=== PATIENT | female | born 1970 | race Caucasian/White ===

== ENCOUNTER 2023-05-24 12:30 | Emergency (ER) | payer OTHER, SELFPAY ==
[2023-05-24 12:37] VITALS: BP 150/100
[2023-05-24 12:51] LABS: % Basophils 0.6 % (0-2); % Eosinophils 1.5 % (0-6); % Immature Granulocytes 0.3 % (0-0.5); % Lymphocytes 22.9 % (20.5-51.1); % Monocytes 9.2 % (1.7-9.3); % Neutrophils 65.5 % (42.2-75.2); Absolute Basophils 0.1 10^3/uL (0-0.2); Absolute Eosinophils 0.1 10^3/uL (0-0.7); Absolute Lymphocytes 1.8 10^3/uL (1.2-3.4); Absolute Monocytes 0.7 10^3/uL (0.1-0.6); Absolute Neutrophils 5.1 10^3/uL (1.4-6.5); Hematocrit 38.2 % (37.0-47.0); Hemoglobin 13.1 g/dL (12.0-16.0); Mean Corp Hgb Conc. 34.3 g/dL (33.0-37.0); Mean Corpuscular Hgb 31.1 pg (27.0-31.0); Mean Corpuscular Volume 90.7 fL (81.0-99.0); Mean Platelet Volume 9.8 fL (7.4-10.4); Nucleated Red Blood Cells % 0 %; Platelet Count 258 10^3/uL (130-400); Red Blood Cell Count 4.21 10^6/uL (4.20-5.40); Red Cell Dist. Width 13.2 % (11.5-14.5); White Blood Cell Count 7.8 10^3/uL (4.8-10.8)
[2023-05-24 13:08] LABS: ALT (SGPT) 27 U/L (0-35); AST (SGOT) 24 U/L (14-36); Albumin 4.2 g/dl (3.5-5.0); Alkaline Phosphatase 56 U/L (38-126); Blood Urea Nitrogen 17 mg/dl (7-17); Calcium 9.1 mg/dl (8.4-10.2); Carbon Dioxide 25 mmol/L (22-30); Chloride 109 mmol/L (98-107); Glucose 101 mg/dl (70-99); Potassium 3.6 mmol/L (3.5-5.1); Sodium 141 mmol/L (135-145); Total Bilirubin 0.4 mg/dl (0.2-1.3); Total Protein 6.8 g/dl (6.3-8.2); eGFR > 60.00
--- NOTE | 2023-05-24 14:44 | ED.GENMED ---
History of Present Illness
General
Chief Complaint: Musculo-Skeletal Complaint
Time Seen by Provider: 05/24/23 14:40
Travel History
Have you had any contact with someone who has COVID-19?: No
Do you have any symptoms of coronavirus? Fever > 100 degrees, chills, cough, shortness of breath, sore throat, loss of taste or smell, muscle aches, or headache?: No
History of Present Illness
History of Present Illness:
52-year-old female presents to the emergency department for evaluation of right-sided neck pain as well as right arm pain ongoing for the past several days. She also reports as though her right arm is swollen and the right leg feels swollen. Right
neck pain is worse with rotation of the head and neck. She does have known cervical spine issues and has a follow-up with pain management tomorrow. She denies any chest pain or shortness of breath, denies any vision changes, headaches, or vertigo.
Past History
Past History
ED Past Medical History: Asthma, Other (chronic left eye vision problem) and Other (Bipolar disorder, occasional hypertension)
ED Past Surgical History: Other (Patient has had abreast reduction, left eye surgery, bariatric surgery, abdominoplasty.)
Social History
Tobacco: Non-smoker
Alcohol: None
Drug: None
Personal:
Living: with family
Employment: Not employed
Family History
Family History: CAD
Review of Systems
Review of Systems
Allergies reviewed?: Yes
All Other Systems: ROS reviewed and negative except as documented in HPI and ROS
Phy Exam
Physical Exam
Physical Exam:
GEN: Well appearing, NAD, WDWN
HEENT: Oral mucosa moist, no scleral icterus, no nasal congestion
Cardiac: Regular rate and rhythm, no murmur
Lung: No respiratory distress, no tachypnea
MSK: No gross deformity or injuries
Skin: Good color, no pallor or jaundice, no rashes
Neuro: AO x3; CN II-XII grossly intact. BUE strength 5/5 in all amin, sensation intact and symmetric. BLE strength 5/5 in all amin, sensation intact and symmetric
Psych: Calm, cooperative
Course
Orders/Labs/Results
Orders:
Orders
05/24/23 12:46
Complete Blood Count/With Diff Urgent
Comprehensive Metabolic Panel Urgent
Abnormal Lab Results
05/24/23
12:46
MCH 31.1 H pg
(27.0-31.0)
Absolute Monos (auto) 0.7 H 10^3/uL
(0.1-0.6)
Chloride 109 H mmol/L
(98-107)
Glucose 101 H mg/dl
(70-99)
05/24/23 12:46
05/24/23 12:46
Vital Signs
Initial and Last Documented VS:
Initial Vital Signs
Temp Pulse Resp BP Pulse Ox
98.0 F 100 16 150/100 98
05/24/23 12:37 05/24/23 12:37 05/24/23 12:37 05/24/23 12:37 05/24/23 12:37
Last Documented Vital Signs
Temp Pulse Resp BP Pulse Ox
98.0 F 100 16 150/100 98
05/24/23 12:37 05/24/23 12:37 05/24/23 12:37 05/24/23 12:37 05/24/23 12:37
MDM/Problems Addressed
MDM/Problems Addressed:
Patient is unremarkable neurologic exam and normal labs. Low clinical suspicion for vertebral artery dissection given lack of other associated symptoms. Likely mechanical neck pain in the setting of known cervical spine disease. Recommend pain
management follow-up tomorrow
*Critical Care Note
Total Time (30-74mins, 75-104mins- exclusive of procedures): Not Applicable
ED Attending Note
-
Portions of this chart may have been created with voice recognition software.� Occasional wrong word or��sound alike� substitutions may have occurred due to the inherent limitations of voice recognition software.
Discharge Plan
Departure
Patient Disposition: Home (Routine Discharge)
Date of Disposition: 05/24/23
Time of Disposition: 15:23
Patient with high blood pressure during this ER visit?: No
Discharge Problem:
Neck pain on right side, Cervical radiculopathy
Instructions: Radiculopathy (DC)
Prescriptions:
No Action
Multiple Vitamins
1 tab PO DAILY
albuterol sulfate [Albuterol Sulfate HFA] 18 GM HFA aerosol inhaler
8.5 gm inhalation PRN PRN (Reason: sob)
Interventions
Interventions:
*Risk Screen - Suicide Last Done: 05/24/23 15:28
*General Assessment Last Done: 05/24/23 15:29
*Neglect/Abuse Screening Last Done: 05/24/23 15:28
ED- Fall Risk Assessment Last Done: 05/24/23 15:29
*ED COVID-19 Vaccine History Last Done: 05/24/23 12:37
*Nursing Disposition Last Done: 05/24/23 15:29
ED-Musculoskeletal Assessment Last Done: 05/24/23 15:28
Discharge Date and Time
Discharge Date/Time: 05/24/23 15:32
== END 2023-05-24 15:32 | disposition home or self-care (01) ==
LOC: EMR 12:30
PROVIDERS: Emergency Medicine; EMERGENCY PHYSICIAN Emergency Medicine; FAMILY PHYSICIAN Family Medicine
DX: M54.12 Radiculopathy, cervical region (principal); M54.2 Cervicalgia
CPT/HCPCS: 99283; 80053; 85025